=== PATIENT | male | born 1950 | race Caucasian/White ===

== ENCOUNTER → 2017-05-05 | Day surgery (SDC) | payer OTHER ==
[~2017-05-05] VITALS: Ht 175.3 cm; Wt 68.0 kg
--- NOTE | 2017-05-05 11:05 | Operative Report ---
Operative/Inv Procedure Report Surgery Date: 05/05/17 Name of Procedure: RIH mesh TEPP and left buttock lipoma deep, 9.5 cm Pre-Operative Diagnosis: Right inguinal hernia and left buttock lipoma Post-Operative Diagnosis: Same, indirect, deep subfascial Estimated Blood Loss: scant Surgeon/County Surveyor: Santi LOMBARDI,Porfirio ALLEN Anesthesia: general endotracheal tube Operative/Procedure Note Note: Patient was positioned supine on the table. After successful induction of general anesthesia the inguinal and surrounding areas were clipped prepped and draped in the usual sterile fashion. After injection of local anesthetic at the bottom of the umbilicus off the midline, to the right, a 1 1/2 cm curved incision was made with a 15 blade, then deepened through Mary's fascia, sweeping off the rectus sheath. A horizontal 1-1/2 cm incision was made between the fibers, elevating these edges with 0 Vicryl stay sutures. Then retracting the muscle laterally, clearing off the posterior rectus sheath, this space is developed down the midline to the pubis sequentially, with an S retractor, a peanut dissector, then the balloon-camera device, inflating it 30-40 pumps while watching how it opens up the space, keeping the epigastrics up. The balloon is then replaced with a 10 mm Veras trocar, inserted, shortened, and secured with the stay sutures, gas turned on to 12 not 15 mm. Then two 5 mm trochars are inserted in the midline just below the camera, spaced by approximately 3 cm. Using mostly blunt dissection with peanuts to define the anatomy, first Tate's ligament is swept off medially, checking the medial spaces, direct and femoral. There were no hernias there. Then briefly skipping over the area of the iliac fat pad, we developed the iliopubic tract out laterally to the iliac crest. Then we returned to the area of the fat pad where the hernia sac and the cord structures are adherent, coursing up into an attenuated deep ring. The cord structures form a triangle with the vas approaching medially and the main vessels approaching laterally, with the apex at the deep ring. There was some preperitoneal fat up inside in front that was dragged down and out, helping identify the distal lip of the hernia sac, which is then carefully peeled off the cord structures, especially the vas. The cord is also from the underlying iliac fat. Once the hernia sac is from the cord structures down to the base of this "triangle," a Parietex sided mesh with the suture, is marked and stuffed down the camera trocar, then unfurled in a systematic fashion , first with the smaller leaflet passing behind the cord structures, until the flap covers the epigastrics, covering the deep ring, then the larger leaflet is released from the suture, double-covering the smaller one, but also extends laterally out to the iliac crest, medially over Tate's ligament, and superiorly towards the camera. There is a third part of the mesh, that covers the iliac fat pad like a skirt. The mesh was adjusted back and forth so that the keyhole is centered around the cord, lays flat and the edges are not curling. A trial run of letting the gas escape a little bit to see how the mesh would lay as the peritoneum comes back down is done, then when we're satisfied, we let rest of the gas escape, pulling out the instruments and trochars. The fascia is closed with a [id number] 0 Vicryl suture, tying the stay sutures on top. Then we closed the 3 skin incisions with interrupted 4-0 Monocryl, 3 for the umbilical, one each for the smaller ones, followed by Mastisol, Steri-Strips and Band-Aids. Next with the patient still intubated we turned him right lateral down and prepped and draped his left buttock and hip area in the usual sterile fashion. Following the skin lines and horizontal 8 cm incision was planned over the palpable mass we infiltrated local anesthetic and made the incision deepened it to the dermis and started to develop a plane around this lobulated partially encapsulated partially subfascial intertwined with some buttock muscle fatty mass which we were able to move completely we used cautery mostly and blunt dissection pain care to include all the lobules avoiding injury to surrounding nerves and vessels, this measured a little over 9 cm, we then checked the resulting cavity for hemostasis which was good and then reapproximated in layers using 3-0 Vicryl sutures deep and a running subcuticular 5-0 Biosyn suture for the skin itself followed by Mastisol Steri-Strips Telfa and Tegaderm. Overall estimated blood loss was minimal, lap and sponge counts were correct, wound expectancy was clean, IV fluids crystalloid, complications none, patient tolerated the procedure well, did not significantly yusuf during extubation and was returned to the recovery room in satisfactory condition.
== END ==
LOC: STS 03:39
DX: K40.90 Unilateral inguinal hernia, without obstruction or gangrene, not specified as recurrent (principal); D21.5 Benign neoplasm of connective and other soft tissue of pelvis
CPT/HCPCS: 88304; C1781; J2250